=== PATIENT | female | born 1990 | race African-American/Black ===

== ENCOUNTER 2019-01-10 13:06 | Emergency (ER) | payer MEDICAID ==
[~2019-01-10] VITALS: Ht 168 cm; Wt 116.0 kg
[2019-01-10] MEDS ORDERED: KETOROLAC 30 MG/ML VIAL IVP ONE (13:30)
[2019-01-10] MEDS ORDERED: LORazepam INJ 2 MG/ML (ATIVAN) VIAL IVP PRN (13:30)
[2019-01-10 13:54] LABS: BASOPHILS % (AUTO) 0 % (0-10); EOSINOPHILS # (AUTO) 0.1 10^3/uL (0.0-0.3); EOSINOPHILS % (AUTO) 2 % (0-10); HEMATOCRIT 40 % (35-52); HEMOGLOBIN 13.4 G/DL (11.5-16.0); LYMPHOCYTES # (AUTO) 1.5 X 10^3 (1.0-4.0); LYMPHOCYTES % (AUTO) 23 % (12-44); MEAN CORPUSCULAR HEMOGLOBIN 31 PG (25-34); MEAN CORPUSCULAR HGB CONC 34 G/DL (32-36); MEAN CORPUSCULAR VOLUME 92 FL (80-99); MEAN PLATELET VOLUME 10.8 FL (7.4-10.4); MONOCYTES # (AUTO) 0.3 X 10^3 (0.0-1.0); MONOCYTES % (AUTO) 5 % (0-12); NEUTROPHILS # (AUTO) 4.6 X 10^3 (1.8-7.8); NEUTROPHILS % (AUTO) 70 % (42-75); PLATELET COUNT 212 10^3/uL (130-400); RED CELL DISTRIBUTION WIDTH 12.2 % (10.0-14.5); WHITE BLOOD COUNT 6.5 10^3/uL (4.3-11.0)
--- NOTE | 2019-01-10 14:02 | ED Chest Pain ---
General Chief Complaint: Chest Pain Stated Complaint: CP 4-5 DAYS Nursing Triage Note: Patient c/o L sided chest pain x 3 days Nursing Sepsis Screen: No Definite Risk Source: patient Exam Limitations: no limitations History of Present Illness Date Seen by Provider: Jan 10, 2019 Time Seen by Provider: 14:01 Initial Comments To ER with left-sided mid chest pain that she describes as deep and worsened by movement. Present for 3 days since starting old tram for her chronic low back pain. She is tearful on arrival states that she is upset because the Ultram actually works for her chronic low back pain, she was tired of trying a variety of medications none of which helped. She found this Ultram at work but it has also seemingly caused her left-sided chest pain. Timing/Duration: changing over time Severity/Quality: moderate Location: substernal Radiation: no radiation Activities at Onset: none Prior CP/Workup: no prior chest pain ASA po ACID LOADER: No NTG SL ACID LOADER: No Associated Symptoms: No nausea/vomiting Allergies and Home Medications Allergies Coded Allergies: NSAIDS (Non-Steroidal Anti-Inflamma (Verified Allergy, Unknown, 01/10/19) Home Medications Methocarbamol 750 Mg Tablet, 750 MG PO Q6H PRN for PAIN-SEVERE (8-10) Prescribed by: JOSIE BOCANEGRA on 01/10/19 1072 Patient Home Medication List Home Medication List Reviewed: Yes Review of Systems Review of Systems Constitutional: see HPI EENTM: No Symptoms Reported Respiratory: No Symptoms Reported Cardiovascular: See HPI, Chest Pain Gastrointestinal: No Symptoms Reported Genitourinary: No Symptoms Reported Musculoskeletal: no symptoms reported Skin: no symptoms reported Psychiatric/Neurological: No Symptoms Reported Endocrine: No Symptoms Reported Hematologic/Lymphatic: No Symptoms Reported Past Uhjegnv-Dwtvfx-Gkbswu Hx Patient Social History Alcohol Use: Denies Use Recreational Drug Use: No Recent Foreign Travel: No Contact w/Someone Who Travel: No Recent Infectious Disease Expo: No Physical Abuse: No Sexual Abuse: No Mistreated: No Fear: No Past Medical History Surgeries: No Respiratory: No Cardiac: No Neurological: No Genitourinary: No Gastrointestinal: No Musculoskeletal: Yes Chronic Back Pain Endocrine: No HEENT: No Cancer: No Psychosocial: No Integumentary: No Blood Disorders: No Physical Exam Vital Signs Vital Signs - First Documented 01/10/19 01/10/19 13:10 13:17 Pulse 112 Resp 24 B/P (MAP) 171/140 (150) Pulse Ox 100 O2 Delivery Room Air Capillary Refill : Less Than 3 Seconds Height, Weight, BMI Height: '" Weight: lbs. oz. kg; 41.00 BMI Method: General Appearance: No Apparent Distress, WD/WN HEENT: PERRL/EOMI, TMs Normal Respiratory: Normal Breath Sounds, No Accessory Muscle Use, No Respiratory Distress Cardiovascular: Regular Rate, Rhythm, Normal Peripheral Pulses Gastrointestinal: Normal Bowel Sounds, Non Tender, Soft Extremity: Normal Capillary Refill Neurologic/Psychiatric: Alert, Oriented x3 Skin: Normal Color, Warm/Dry Progress/Results/Core Measures Results/Orders Lab Results Laboratory Tests Test 01/10/19 13:48 Range/Units White Blood Count 6.5 4.3-11.0 10^3/uL Red Blood Count 4.31 L 4.35-5.85 10^6/uL Hemoglobin 13.4 11.5-16.0 G/DL Hematocrit 40 35-52 % Mean Corpuscular Volume 92 80-99 FL Mean Corpuscular Hemoglobin 31 25-34 PG Mean Corpuscular Hemoglobin Concent 34 32-36 G/DL Red Cell Distribution Width 12.2 10.0-14.5 % Platelet Count 212 130-400 10^3/uL Mean Platelet Volume 10.8 H 7.4-10.4 FL Neutrophils (%) (Auto) 70 42-75 % Lymphocytes (%) (Auto) 23 12-44 % Monocytes (%) (Auto) 5 0-12 % Eosinophils (%) (Auto) 2 0-10 % Basophils (%) (Auto) 0 0-10 % Neutrophils # (Auto) 4.6 1.8-7.8 X 10^3 Lymphocytes # (Auto) 1.5 1.0-4.0 X 10^3 Monocytes # (Auto) 0.3 0.0-1.0 X 10^3 Eosinophils # (Auto) 0.1 0.0-0.3 10^3/uL Basophils # (Auto) 0.0 0.0-0.1 10^3/uL D-Dimer 0.51 H 0.00-0.49 UG/ML Sodium Level 140 135-145 MMOL/L Potassium Level 4.6 3.6-5.0 MMOL/L Chloride Level 106 98-107 MMOL/L Carbon Dioxide Level 23 21-32 MMOL/L Anion Gap 11 5-14 MMOL/L Blood Urea Nitrogen 8 7-18 MG/DL Creatinine 0.77 0.60-1.30 MG/DL Estimat Glomerular Filtration Rate > 60 BUN/Creatinine Ratio 10 Glucose Level 98 70-105 MG/DL Calcium Level 9.4 8.5-10.1 MG/DL Corrected Calcium 9.2 8.5-10.1 MG/DL Total Bilirubin 0.2 0.1-1.0 MG/DL Aspartate Amino Transf (AST/SGOT) 22 5-34 U/L Alanine Aminotransferase (ALT/SGPT) 24 0-55 U/L Alkaline Phosphatase 75 40-136 U/L Troponin I < 0.028 <0.028 NG/ML Total Protein 7.8 6.4-8.2 GM/DL Albumin 4.2 3.2-4.5 GM/DL Serum Test, Qualitative NEGATIVE NEGATIVE My Orders Orders - JOSIE BOCANEGRA APRN Cbc With Automated Diff (01/10/19 13:17) Comprehensive Metabolic Panel (01/10/19 13:17) Hcg,Qualitative Serum (01/10/19 13:17) Fibrin Degradation Products (01/10/19 13:17) Troponin I (01/10/19 13:17) Ekg Tracing (01/10/19 13:17) Chest Pa/Lat (2 View) (01/10/19 13:17) Ed Iv/Invasive Line Start (01/10/19 13:17) Ketorolac Injection (Toradol Injection) (01/10/19 13:30) Lorazepam Injection (Ativan Injection) (01/10/19 13:30) Ct Angio Chest W (01/10/19 14:10) Iohexol Injection (Omnipaque 350 Mg/Ml 1 (01/10/19 14:30) Received Contrast (Hold Metformin- Contr (01/10/19 14:30) Ns (Ivpb) (Sodium Chloride 0.9% Ivpb Bag (01/10/19 14:30) Medications Given in ED Current Medications Medications Dose Ordered Sig/Danelle Route Start Time Stop Time Status Last Admin Dose Admin Iohexol 100 ml ONCE ONCE IV 01/10/19 14:30 01/10/19 14:31 DC 01/10/19 14:40 84 ML Ketorolac Tromethamine 15 mg ONCE ONCE IVP 01/10/19 13:30 01/10/19 13:31 DC 01/10/19 13:22 15 MG Sodium Chloride 100 ml ONCE ONCE IV 01/10/19 14:30 01/10/19 14:31 DC 01/10/19 14:40 100 ML Vital Signs/I&O 01/10/19 01/10/19 01/10/19 13:10 13:17 15:04 Pulse 112 94 Resp 24 18 B/P (MAP) 171/140 (150) 142/91 (150) Pulse Ox 100 100 O2 Delivery Room Air Room Air Blood Pressure Mean: 150 POS Departure Impression Primary Impression: Chest pain Qualified Codes: R07.9 - Chest pain, unspecified Disposition: HOME, SELF-CARE Condition: Stable Departure-Patient Inst. Decision time for Depature: 14:51 Referrals: [facility]/ (PCP) Primary Care Physician TESS ALVAREZ APRN (Family) Primary Care Physician Patient Instructions: Chest Pain (DC) Add. Discharge Instructions: 1. Return to ER for any concerns 2. Follow-up with your doctor next week 3. All discharge instructions reviewed with patient and/or family. Voiced understanding. Scripts Methocarbamol (Robaxin-750) 750 Mg Tablet 750 MG PO Q6H PRN for PAIN-SEVERE (8-10), #30 TAB Prov: JOSIE BOCANEGRA APRN 01/10/19 JOSIE BOCANEGRA APRN Jan 10, 2019 14:02 POS
[2019-01-10 14:13] LABS: ALANINE AMINOTRANSFERASE 24 U/L (0-55); ALBUMIN 4.2 GM/DL (3.2-4.5); ALKALINE PHOSPHATASE 75 U/L (40-136); BILIRUBIN,TOTAL 0.2 MG/DL (0.1-1.0); BUN/CREATININE RATIO 10; CALCIUM 9.4 MG/DL (8.5-10.1); CARBON DIOXIDE 23 MMOL/L (21-32); CHLORIDE 106 MMOL/L (98-107); CREATININE SERUM 0.77 MG/DL (0.60-1.30); GFR ESTIMATED > 60; GLUCOSE 98 MG/DL (70-105); POTASSIUM 4.6 MMOL/L (3.6-5.0); SODIUM 140 MMOL/L (135-145); TOTAL PROTEIN 7.8 GM/DL (6.4-8.2)
[2019-01-10] MEDS ORDERED: NS 100 ML (IVPB) BAG IV ONE (14:30)
[2019-01-10] MEDS ORDERED: IOHEXOL 350 MG/ML 100 ML (OMNIPAQUE 350) VIAL IV ONE (14:30)
[2019-01-10] MEDS ORDERED: HOLD METFORMIN - RECEIVED CONTRAST 20 ML VIAL IV SCH (14:30)
--- NOTE | 2019-01-10 14:35 | Diagnostic Imaging Report ---
Indication: Left-sided chest pain for 3 days. Comparison: None. Discussion: Two views of the chest were obtained. Normal heart size. No focal consolidation, pleural fluid, or pneumothorax. No osseous abnormality. Impression: 1. Negative chest. Dictated by: Dictated on workstation # [id number]
--- NOTE | 2019-01-10 14:45 | Diagnostic Imaging Report ---
PROCEDURE: CT angiography of the chest with contrast. TECHNIQUE: Multiple contiguous axial images were obtained through the chest after uneventful bolus administration of intravenous contrast. 3D reconstructed CTA MIP acquisitions were also performed. Auto Exposure Controls were utilized during the CT exam to meet ALARA standards for radiation dose reduction. INDICATION: Left-sided chest pain. FINDINGS: There were no intraluminal pulmonary arterial filling defects identified. No displacement of the ventricular septum. No findings of elevated right heart pressures. No features of pulmonary hemorrhage or lung infarct. We acknowledge that distal pulmonary arterial branch opacification is technically limited. The aorta is patent and nonaneurysmal. Heart size upper limits but no pleural or pericardial effusion. There is no pneumothorax. No lung mass or evidence for thoracic lymphadenopathy. No acute chest wall pathology. No findings of pneumonia or edema. IMPRESSION: No evidence for PE, aortic disease or other acute abnormalities. Dictated by: Dictated on workstation # [id number]
[2019-01-10] MEDS ORDERED: METH-313 PO (14:52)
[2019-01-10 15:04] VITALS: BP 142/91
--- OUTSIDE RECORDS SUMMARY | 2019-02-04 08:24 | XMS REPORT | Continuity of Care Document ---
Author Author [facility] Organization [facility] Address [facility] [address] [place] [address] Phone Unavailable Support Name Relationship Address Phone MAK ARENAS D.O. Caregiver [address] [facility] [address] [place], [place] [id number] MAGDALENA, ALEXI Next Of Kin [address] [place] [address] Insurance Providers Payer Name Policy Number Subscriber Name Relationship Blue Cross Other [id number] Gracie Burk H 19 Child Advance Directives Directive Response Recorded Date/Time Advance Directives No 09/01/15 5:10pm Living Will No 09/01/15 5:10pm Health Care Proxy No 09/01/15 5:10pm Power of Quality Control Checker for Health Care No 5:10pm Organ, Tissue, or Eye Donor Yes 09/01/15 5:1 0pm Do you have a signed organ donor card? No 0 06/24/15 3:31pm Problems Active Problems Medical Problem Onset Date Status Threatened miscarriage Unknown Acute Medications Current Home Medications Medication Dose Units Route Directions Days/Qty Instructions Star t Date Prenat Multivit/[place]/Iron/Folic Ac 1 Each 2 Udtab Oral Daily 06/15/15 Acetaminophen 325 Mg 2 Tab Oral Every 4 Hours a s needed for Pain Or Temperature 06/15/15 Metoprolol Tartrate 25 Mg 25 Mg Oral Twice A Day 60 09/01/15 [Red Raspberry] 2 Tab Oral Twice A Day 08/11 03/28 Past Home Medications Medication Directions Ordered Status [[place]] , 3 Tab Oral Daily 09/01/15 Disc ontinued Social History Social History Problem Response Recorded Date/[place] e Smoking Status Former smoker 09/01/2015 5:10pm Query Response Start Date Stop Date Smoking Status Former smoker Hospital Discharge Instructions Discharge Instructions Provider Instructions Make Appointment with: Dr. Arenas [phone] Follow Up In: 6 Weeks Diet: Regular (No Restrictions) Activity Restrictions: no sex Smoking Cessation If you are a smoker, the following is recommended: Stop all tobacco use; for help quitting, please call [phone]. Wound Care: Keep incision clean washing frequently Notify Physician If: Fever Greater 100.5 F, Pain Not Relieved by Med., Excessive Bleeding # of Weeks Gestation: 40 # of Days Gestation: 3 OB-Reason for Admission/Chief: Medical Complication (HTN) Nursing Instructions Flu Vaccine Received this Visit: No Pneumonia Vaccine Received this Visit: No Education #1 Patient specific education materials provided?: Yes Patient Request Electronic Discharge Instructions: No Patient Received Electronic Discharge Instructions: No Patient Health Summary printed/downloaded for the patient?: Yes Plan of Care Discharge Date 09/03/15 11:00am Disposition 01 HOME, SENIOR CARE,ASSISTED TRAVIS Galaviz Instructions/Education Provided Vaginal Delivery (DC) Prescriptions See Medication Section Care Plan and Goals See Discharge Instructions S ection Functional Status Query Response Date Recorded Patient Behavior Appropriate September 01, 2015 5:48pm Allergies, Adverse Reactions, Alerts No known allergies. Immunizations Name Given Type Hx Diphtheria, Pertussis, Tetanus Vaccination Up To Date Historical Hx Influenza Vaccination No Historical Hx Pneumococcal Vaccination No Historical Vital Signs Acute Vital Signs Vital Response Date/Time Temperature (Fahrenheit) 97.8 degrees F (97.6 - 99.5) 2015 7:57am Temperature Source Temporal Artery 09/03/2015 7:57am Pulse Rate (adult) 100 bpm (60 - 90) 09/03/2015 7:57am Respiratory Rate 16 bpm (12 - 24) 09/02/2015 8:50pm Blood Pressure 127/73 mm Hg 09/03/2015 7:57am Pain Location Body Site Modifier 016 7:57am Pain Description 09/03/2015 7:57am Pain Duration 31-60 Minutes 09/02/2015 8:45am Height 5 ft 6 in Weight 240 lb Body Mass Index 38.7 kg/m^2 Results Laboratory Results Test Name Result Units Flags Reference Collection Date/Time Result Date/Time Comments White Blood Count 9.0 K/uL 4.8-10.8 06/09/2015 11:45am 9:39pm Red Blood Count 3.27 M/uL L 4.20-5.40 06/09/2015 11:45 9:39pm Hemoglobin 11.0 gm/dL L 12.0-16.0 06/09/2015 11:4506/09/19 16 9:39pm Hematocrit 34.3 % L 37.0-47.0 06/09/2015 11:4506/09/19 16 9:39pm Mean Corpuscular Volume 104.9 fL H 81.0-99.0 2015 11:4506/09/2015 9:39pm Mean Corpuscular Hemoglobin 33.6 pg H 27.0-31.0 11:4506/09/2015 9:39pm Mean Corpuscular Hemoglobin Concent 32.1 g/dL 30.0 -37.0 06/09/2015 11:06/09/2015 9:39pm Red Cell Distribution Width 13.4 % 11.5-14.5 11:4506/09/2015 9:39pm Platelet Count 198 K/uL 130-400 06/09/2015 11:452015 9:39pm Mean Platelet Volume 11.8 fL H 7.4-10.4 06/09/2015 11:06/09/2015 9:39pm Neutrophils (%) (Auto) 80.8 % H 42.2-75.2 06/09/2015 11:4 5am 06/09/2015 9:39pm Lymphocytes (%) (Auto) 12.4 % L 20.5-51.1 06/09/2015 11:4 5am 06/09/2015 9:39pm Monocytes (%) (Auto) 5.2 % 1.7-9.3 06/09/2015 11:4506/09/2015 9:39pm Eosinophils (%) (Auto) 1.1 % 0-3 06/09/2015 11:45a m 06/09/2015 9:39pm Basophils (%) (Auto) 0.6 % 0.0-1.0 06/09/2015 11:4506/09/2015 9:39pm Neutrophils # (Auto) 7.2 K/uL H 2.0-6.9 06/09/2015 11:4506/09/2015 9:39pm Lymphocytes # (Auto) 1.1 K/uL L 1.2-3.4 06/09/2015 11:45am 06/09/2015 9:39pm Monocytes # (Auto) 0.5 K/uL 0.1-0.6 06/09/2015 11:45am 9:39pm Eosinophils # (Auto) 0.1 K/uL 0.0-0.7 06/09/2015 11:45am 06/09/2015 9:39pm Basophils # (Auto) 0.1 K/uL 0.0-0.2 06/09/2015 11:45am 9:39pm Pending Laboratory Results Test Name Collection Date/Time Procedures No known history of procedures. Encounters Encounter Location Arrival/Admit Date Discharge/Depart Date Attending Provider Discharged Inpatient [place] 09/01/15 12:07pm 09/03/15 11:00am MAK ARENAS D.O. Registered Referred [place] 08/04/15 5:33pm MAK QUEEN D.O. Registered Referred [place] 07/14/15 11:01am MAK VELASQUEZ D.O. Registered Clinic [place] 07/11/15 9:37am MAK ARENAS D.O. Registered Clinic [place] 07/04/15 11:21am MAK ARENAS D.O. Registered [facility] 06/24/15 3:36pm MAK ARENAS D.O. Departed [facility] 06/15/15 1:48pm 06/15/15 2:57pm MAK ARENAS D.O. Registered Referred [place] 06/09/15 7:30pm MAK QUEEN D.O.
--- OUTSIDE RECORDS SUMMARY | 2019-02-04 08:24 | XMS REPORT | Continuity of Care Document ---
Author Author [facility] Organization [facility] Address [facility] [address] [place] [id number] Phone Unavailable Support Name Relationship Address Phone ALVINO CASTANON MD Caregiver [address] [place] [id number] Unavailable MAK VALENZUELA D.O. Caregiver [address] [place] [address] MAGDALENAALEXI Next Of Kin [address] [place] [address] Insurance Providers Payer Name Policy Number Subscriber Name Relationship [employer] Other [id number] Gracie Burk 19 Child Advance Directives Directive Response Recorded Date/Time Advance Directives No 09/01/15 5:10pm Living Will No 09/01/15 5:10pm Health Care Proxy No 09/09/15 7:44pm Power of Utilization Manager for Health Care No 5:10pm Organ, Tissue, or Eye Donor Yes 09/01/15 5:1 0pm Do you have a signed organ donor card? No 0 06/24/15 3:31pm Chief Complaint and Reason for Visit Chief Complaint LACERATION/RECHECK/SUTURE Reason for Visit Wound dehiscence Problems Active Problems Medical Problem Onset Date Status Threatened miscarriage Unknown Acute Wound dehiscence Unknown Acute Medications Current Home Medications Medication Dose Units Route Directions Days/Qty Instructions Star t Date Prenat Multivit/Extension Service Supervisor/Iron/Folic Ac 1 Each 2 Udtab Oral Daily [...] Smoking Status Former smoker Hospital Discharge Instructions No hospital discharge instructions. Plan of Care Discharge Date 09/09/15 8:30pm Disposition 01 HOME, HALFWAY,ASSISTED TRAVIS Galaviz Condition at Discharge Stable Instructions/Education Provided Wound Dehiscence (ED) Prescriptions See Medication Section Additional Instructions/Education Return if the lacera tion opens more, for any redness, swelling, drainage, or increased pain. Follow up with Dr Valenzuela on Friday. Functional Status Query Response Date Recorded Patient Behavior Cooperative September 09, 2015 7:55pm Allergies, Adverse Reactions, Alerts No known allergies. Immunizations Name Given Type Hx Diphtheria, Pertussis, Tetanus Vaccination Up To Date Historical Hx Influenza Vaccination N Does not take Historical Hx Pneumococcal Vaccination N Does not take Historical Vital Signs Acute Vital Signs Vital Response Date/Time Temperature (Fahrenheit) 97.6 degrees F (97.6 - 99.5) 2015 8:30pm Temperature Source Temporal Artery 09/09/2015 8:30pm Pulse Rate (adult) 88 bpm (60 - 90) 09/09/2015 8:30pm Respiratory Rate 18 bpm (12 - 24) 09/09/2015 8:30pm Blood Pressure 142/84 mm Hg 09/09/2015 8:30pm O2 Sat by Pulse Oximetry 100 % (90 - 100) 09/09/2015 8:30 pm Oxygen Delivery Method 09/09/2015 8:30pm Pain Location Body Site Modifier 016 7:57am Pain Description 09/03/2015 7:57am Pain Duration 31-60 Minutes 09/02/2015 8:45am Height 5 ft 6 in Weight 236 lb Body Mass Index 38.0 kg/m^2 Results Pending Laboratory Results Test Name Collection Date/Time Procedures Procedure Status Date Provider(s) EXTRACTION OF POC, LOW FORCEPS, VIA OPENING Completed 08/11 04/25 MAK VALENZUELA D.O. REPAIR PERINEUM MUSCLE, OPEN APPROACH Completed 09/02/15 MAK VALENZUELA D.O. DIVISION OF FEMALE PERINEUM, EXTERNAL APPROACH Completed 0 09/02/15 MAK VALENZUELA D.O. DRAINAGE OF AMNIOTIC FL, THERAP FROM POC, VIA OPENING Completed 09/02/15 MAK VALENZUELA D.O. Encounters Encounter Location Arrival/Admit Date Discharge/Depart Date Attending Provider Departed Emergency Room [place] 09/09/15 7:46pm 09/09/15 8:30p ALVINO Flores MD Discharged Inpatient [place] 09/01/15 12:07pm 09/03/15 11:00am MAK VALENZUELA D.O. Registered Referred [place] 08/04/15 5:33pm MAK QUEEN D.O. Registered Referred [place] 07/14/15 11:01am MAK VELASQUEZ D.O. Registered Clinic [place] 07/11/15 9:37am MAK VALENZUELA D.O. Registered Clinic [place] 07/04/15 11:21am MAK VALENZUELA D.O. Registered Clinic [place] 06/24/15 3:36pm MAK VALENZUELA D.O. Departed Clinic [place] 06/15/15 1:48pm 06/15/15 2:57pm MAK VALENZUELA D.O. Recent Diagnosis
--- OUTSIDE RECORDS SUMMARY | 2019-02-04 08:24 | XMS REPORT | Continuity of Care Document ---
Author Author [facility] Organization [facility] Address [facility] [address] [place] [address] Phone Unavailable Support Name Relationship Address Phone MAK ARENAS D.O. Caregiver [address] [facility] [address] [place] [address] MAGDALENA, ALEXI Next Of Kin [address] [place] [address] Insurance Providers Payer Name Policy Number Subscriber Name Relationship Blue [employer] Other [id number] Gracie Burk 19 Child Advance Directives Directive Response Recorded Date/Time Advance Directives No 09/03/11 12:18pm Living Will No 09/03/11 12:18pm Health Care Proxy No 06/15/15 1:48pm Power of Anchor Operator for Health Care No 12:18pm Organ, Tissue, or Eye Donor No 09/03/11 12: 18pm Do you have a signed organ donor card? No 0 09/03/11 12:18pm Problems Active Problems Medical Problem Onset Date Status Threatened miscarriage Unknown Acute Medications Current Home Medications Medication Dose Units Route Directions Days/Qty Instructions Star t Date Prenat Multivit/[place]/Iron/Folic Ac 1 Each 1 Udtab Oral 06/15/15 Acetaminophen 325 Mg 06/25 Social History No social history. Hospital Discharge Instructions No hospital discharge instructions. Plan of Care Discharge Date 06/15/15 2:57pm Prescriptions See Medication Section Functional Status No functional status results. Allergies, Adverse Reactions, Alerts No known allergies. Immunizations Name Given Type Hx Diphtheria, Pertussis, Tetanus Vaccination Up To Date Historical Hx Influenza Vaccination No Historical Hx Pneumococcal Vaccination No Historical Vital Signs Acute Vital Signs Vital Response Date/Time Height 5 ft 6 in Weight 218 lb Body Mass Index 35.2 kg/m^2 Results Laboratory Results Test Name Result Units Flags Reference Collection Date/Time Result Date/Time Comments White Blood Count 9.0 K/uL 4.8-10.8 06/09/2015 11:45 9:39pm Red Blood Count 3.27 M/uL L 4.20-5.40 06/09/2015 11:45 9:39pm Hemoglobin 11.0 gm/dL L 12.0-16.0 06/09/2015 11:4506/09/19 16 9:39pm Hematocrit 34.3 % L 37.0-47.0 06/09/2015 11:4506/09/19 16 9:39pm Mean Corpuscular Volume 104.9 fL H 81.0-99.0 2015 11:4506/09/2015 9:39pm Mean Corpuscular Hemoglobin 33.6 pg H 27.0-31.0 11:4506/09/2015 9:39pm Mean Corpuscular Hemoglobin Concent 32.1 g/dL 30.0 -37.0 06/09/2015 11:4506/09/2015 9:39pm Red Cell Distribution Width 13.4 % 11.5-14.5 11:4506/09/2015 9:39pm Platelet Count 198 K/uL 130-400 06/09/2015 11:452015 9:39pm Mean Platelet Volume 11.8 fL H 7.4-10.4 06/09/2015 11:4506/09/2015 9:39pm Neutrophils (%) (Auto) 80.8 % H 42.2-75.2 06/09/2015 11:4 5am 06/09/2015 9:39pm Lymphocytes (%) (Auto) 12.4 % L 20.5-51.1 06/09/2015 11:4 5am 06/09/2015 9:39pm Monocytes (%) (Auto) 5.2 % 1.7-9.3 06/09/2015 11:4506/09/2015 9:39pm Eosinophils (%) (Auto) 1.1 % 0-3 06/09/2015 11:45a m 06/09/2015 9:39pm Basophils (%) (Auto) 0.6 % 0.0-1.0 06/09/2015 11:45am 06/09/2015 9:39pm Neutrophils # (Auto) 7.2 K/uL H 2.0-6.9 06/09/2015 11:45am 06/09/2015 9:39pm Lymphocytes # (Auto) 1.1 K/uL L 1.2-3.4 06/09/2015 11:45am 06/09/2015 9:39pm Monocytes # (Auto) 0.5 K/uL 0.1-0.6 06/09/2015 11:45am 9:39pm Eosinophils # (Auto) 0.1 K/uL 0.0-0.7 06/09/2015 11:45am 06/09/2015 9:39pm Basophils # (Auto) 0.1 K/uL 0.0-0.2 06/09/2015 11:45am 9:39pm Procedures No known history of procedures. Encounters Encounter Location Arrival/Admit Date Discharge/Depart Date Attending Provider Departed Clinic [place] 06/15/15 1:48pm 06/15/15 2:57pm MAK ARENAS D.O. Registered Referred [place] 06/09/15 7:30pm MAK QUEEN D.O.
--- OUTSIDE RECORDS SUMMARY | 2019-02-04 08:24 | XMS REPORT | Continuity of Care Document ---
Author Organization Unknown Address Unknown Phone Unavailable Allergies Active Description Code Type Severity Reaction Onset Reported/Identified Relationship to Patient Clinical Status Yes NSAIDS (Non-Steroidal Anti-Inflamma [id number] Drug Allergy Unknown N/A 01/10/2019 Medications There is no data. Problems There is no data. Procedures There is no data. Results Test Result Range Complete blood count (CBC) with automate d white blood cell (WBC) differential - 01/10/19 13:48 Blood leukocytes automated count (number/volume) 6.5 10*3/uL 4.3-11.0 Blood erythrocytes automated count (number/volume) 4.31 10*6/uL 4.35-5.85 Venous blood hemoglobin measurement (mass/volume) 13.4 g/dL 11.5-16.0 Blood hematocrit (volume fraction) 40 % 35-52 Automated erythrocyte mean corpuscular volume 92 [ foz_us] 80-99 Automated erythrocyte mean corpuscular h emoglobin (mass per erythrocyte) 31 pg 25-34 Automated erythrocyte mean corpuscular h emoglobin concentration measurement (mass/volume) 34 g/dL 32-36 Automated erythrocyte distribution width ratio 12. 2 % 10.0- 14.5 Automated blood platelet count (count/volume) 212 10*3/uL 130-400 Automated blood platelet mean volume measurement 10.8 [foz_us] 7.4-10.4 Automated blood neutrophils/100 leukocytes 70 % 42-75 Automated blood lymphocytes/100 leukocytes 23 % 12-44 Blood monocytes/100 leukocytes 5 % 0-12 Automated blood eosinophils/100 leukocytes 2 % 0-10 Automated blood basophils/100 leukocytes 0 % 0-10 Blood neutrophils automated count (number/volume) 4.6 10*3 1.8-7.8 Blood lymphocytes automated count (number/volume) 1.5 10*3 1.0-4.0 Blood monocytes automated count (number/volume) 0. 3 10*3 0.0-1.0 Automated eosinophil count 0.1 10*3/uL 0 .0-0.3 Automated blood basophil count (count/volume) 0.0 10*3/uL 0.0-0.1 Serum or plasma choriogonadotropin (preg kelli test) detection - 01/10/19 13:48 Serum or plasma choriogonadotropin ( test) de tection NEGATIVE NEGATIVE Comprehensive metabolic panel - 01/10/19 13:48 Serum or plasma sodium measurement (moles/volume) 140 mmol/L 135-145 Serum or plasma potassium measurement (moles/volume) 4.6 mmol/L 3.6-5.0 Serum or plasma chloride measurement (moles/volume) 106 mmol/L 98-107 Carbon dioxide 23 mmol/L 21-32 Serum or plasma anion gap determination (moles/volume) 11 mmol/L 5-14 Serum or plasma urea nitrogen measurement (mass/volume ) 8 mg/dL 7-18 Serum or plasma creatinine measurement (mass/volume) 0.77 mg/dL 0.60-1.30 Serum or plasma urea nitrogen/creatinine mass ratio 10 NRG Serum or plasma creatinine measurement w ith calculation of estimated glomerular filtration rate > NRG Serum or plasma glucose measurement (mass/volume) 98 mg/dL 70-105 Serum or plasma calcium measurement (mass/volume) 9.4 mg/dL 8.5-10.1 Serum or plasma total bilirubin measurement (mass/volu me) 0.2 mg/dL 0.1-1.0 Serum or plasma alkaline phosphatase arianna surement (enzymatic activity/volume) 75 U/L 40-136 Serum or plasma aspartate aminotransfera se measurement (enzymatic activity/volume) 22 U/L 5-34 Serum or plasma alanine aminotransferase measurement (enzymatic activity/volume) 24 U/L 0-55 Serum or plasma protein measurement (mass/volume) 7.8 g/dL 6.4-8.2 Serum or plasma albumin measurement (mass/volume) 4.2 g/dL 3.2-4.5 CALCIUM CORRECTED 9.2 mg/dL 8.5-10.1 Serum or plasma troponin i.cardiac measu rement (mass/volume) - 01/10/19 13:48 Serum or plasma troponin i.cardiac measurement (mass/v olume) < ng/mL <0.028 Fibrin D-dimer FEU measurement in platel et poor plasma (mass/volume) - 01/10/19 13:48 Fibrin D-dimer FEU measurement in platelet poor plasma (mass/volume) 0.51 ug/mL 0.00-0.49 Encounters ACCT No. Visit Date/Time Discharge Status Pt. Type Provider Facility Loc./Unit Complaint [id number] 01/25/2019 11:00:00 01/25/2019 23:59: [address] [facility] [id number] 01/10/2019 13:08:00 019 15:04:00 DIS Emergency JOSIE BOCANEGRA APRN [facility] ER CP 4-5 DAYS
== END 2019-01-10 15:04 | disposition home or self-care (01) ==
LOC: ER 13:08
DX: R07.9 Chest pain, unspecified (principal); Z88.6 Allergy status to analgesic agent
CPT/HCPCS: 36415; 71046; 71275; 80053; 84484; 84703; 85025; 85379; 93005; 96374

== ENCOUNTER 2021-03-09 19:04 | Emergency (ER) | payer MEDICAID ==
[~2021-03-09] VITALS: Ht 167 cm; Wt 113.0 kg
[~2021-03-09 19:04] MED LIST: METH-313 PO
[2021-03-09] MEDS ORDERED: PROMETHAZINE INJ 25 MG/ML (PHENERGAN) AMP ONE (19:18)
[2021-03-09] MEDS ORDERED: LACTATED RINGERS 1,000 ML IV ONE (19:18)
--- NOTE | 2021-03-09 19:22 | ED Abdominal Pain ---
General Chief Complaint: Abdominal/GI Problems Stated Complaint: VOMITING Source of Information: Patient Exam Limitations: No Limitations History of Present Illness Date Seen by Provider: Mar 09, 2021 Time Seen by Provider: 19:21 Initial Comments To ER with vomiting. Whenever she strains to vomit she squirts a little diarrhea. She has been doing this intermittently for a few days. She had an episode similar last week but seemed to recover from that. No fevers. She has had some intermittent lower abdominal cramping as well as intermittent vaginal bleeding. She is sexually active with her . Timing/Duration: Intermittent Severity/Quality: Moderate Radiation: No Radiation Activities at Onset: None Associated Symptoms: Nausea/Vomiting Allergies and Home Medications Allergies Coded Allergies: NSAIDS (Non-Steroidal Anti-Inflamma (Verified Allergy, Unknown, 01/10/19) Patient Home Medication List Home Medication List Reviewed: Yes Methocarbamol (Robaxin-750) 750 Mg Tablet, 750 MG PO Q6H PRN for PAIN-SEVERE (8- 10) Prescribed by: JOSIE BOCANEGRA on 01/10/19 1452 Ondansetron (Ondansetron Odt) 8 Mg Tab.rapdis, 8 MG PO Q6H PRN for NAUSEA/VOMITING Prescribed by: JOSIE BOCANEGRA on 03/09/212107 Promethazine HCl (Promethazine Tablet) 25 Mg Tablet, 25 MG PO TID PRN for NAUSEA/VOMITING Prescribed by: JOSIE BOCANEGRA on 03/09/212107 Review of Systems Review of Systems Constitutional: see HPI EENTM: No Symptoms Reported Respiratory: No Symptoms Reported Cardiovascular: No Symptoms Reported Gastrointestinal: No Symptoms Reported Genitourinary: No Symptoms Reported Musculoskeletal: no symptoms reported Skin: no symptoms reported Psychiatric/Neurological: No Symptoms Reported Endocrine: No Symptoms Reported Hematologic/Lymphatic: No Symptoms Reported Past Lxrmgxy-Bgkyox-Ofztkl Hx Past Medical History Surgeries: No Respiratory: No Cardiac: No Neurological: No Genitourinary: No Gastrointestinal: No Musculoskeletal: Yes Chronic Back Pain Endocrine: No HEENT: No Cancer: No Psychosocial: No Integumentary: No Blood Disorders: No Physical Exam Vital Signs Capillary Refill : Height/Weight/BMI Height: '" Weight: lbs. oz. kg; 41.00 BMI Method: General Appearance: WD/WN, no apparent distress HEENT: PERRL/EOMI, normal ENT inspection Respiratory: no respiratory distress, no accessory muscle use Cardiovascular: no murmur, tachycardia Gastrointestinal: normal bowel sounds, soft, tenderness Extremities: normal range of motion, non-tender Neurologic/Psychiatric: alert, normal mood/affect, oriented x 3 Skin: normal color, warm/dry Progress/Results/Core Measures Results/Orders Lab Results Laboratory Tests Test 03/09/21 19:18 03/09/21 19:22 03/09/21 21:04 Range/Units White Blood Count 13.5 H 4.3-11.0 10^3/uL Red Blood Count 4.57 3.80-5.11 10^6/uL Hemoglobin 14.3 11.5-16.0 g/dL Hematocrit 42 35-52 % Mean Corpuscular Volume 91 80-99 fL Mean Corpuscular Hemoglobin 31 25-34 pg Mean Corpuscular Hemoglobin Concent 34 32-36 g/dL Red Cell Distribution Width 12.2 10.0-14.5 % Platelet Count 295 130-400 10^3/uL Mean Platelet Volume 11.4 9.0-12.2 fL Immature Granulocyte % (Auto) 0 % Neutrophils (%) (Auto) 89 H 42-75 % Lymphocytes (%) (Auto) 8 L 12-44 % Monocytes (%) (Auto) 3 0-12 % Eosinophils (%) (Auto) 0 0-10 % Basophils (%) (Auto) 0 0-10 % Neutrophils # (Auto) 12.0 H 1.8-7.8 10^3/uL Lymphocytes # (Auto) 1.0 1.0-4.0 10^3/uL Monocytes # (Auto) 0.4 0.0-1.0 10^3/uL Eosinophils # (Auto) 0.0 0.0-0.3 10^3/uL Basophils # (Auto) 0.0 0.0-0.1 10^3/uL Immature Granulocyte # (Auto) 0.1 0.0-0.1 10^3/uL Neutrophils % (Manual) 93 % Lymphocytes % (Manual) 5 % Monocytes % (Manual) 2 % Blood Morphology Comment NORMAL Sodium Level 141 135-145 MMOL/L Potassium Level 3.2 L 3.6-5.0 MMOL/L Chloride Level 105 98-107 MMOL/L Carbon Dioxide Level 17 L 21-32 MMOL/L Anion Gap 19 H 5-14 MMOL/L Blood Urea Nitrogen 13 7-18 MG/DL Creatinine 0.90 0.60-1.30 MG/DL Estimat Glomerular Filtration Rate 88 BUN/Creatinine Ratio 14 Glucose Level 143 H 70-105 MG/DL Calcium Level 10.1 8.5-10.1 MG/DL Corrected Calcium 8.5-10.1 MG/DL Total Bilirubin 0.5 0.1-1.0 MG/DL Aspartate Amino Transf (AST/SGOT) 29 5-34 U/L Alanine Aminotransferase (ALT/SGPT) 33 0-55 U/L Alkaline Phosphatase 61 40-136 U/L Total Protein 8.7 H 6.4-8.2 GM/DL Albumin 4.6 H 3.2-4.5 GM/DL Lipase 9 8-78 U/L Serum Test, Qualitative NEGATIVE NEGATIVE Urine Color YELLOW Urine Clarity CLEAR Urine pH 8.0 5-9 Urine Specific [place] 1.020 1.016-1.022 Urine Protein 2+ H NEGATIVE Urine Glucose (UA) NEGATIVE NEGATIVE Urine Ketones 1+ H NEGATIVE Urine Nitrite NEGATIVE NEGATIVE Urine Bilirubin NEGATIVE NEGATIVE Urine Urobilinogen 0.2 < = 1.0 MG/DL Urine Leukocyte Esterase TRACE H NEGATIVE Urine RBC (Auto) 2+ H NEGATIVE Urine RBC 5-10 H /HPF Urine WBC 2-5 /HPF Urine Crystals PRESENT H /LPF Urine Amorphous Sediment FEW NIKOLAS PHOSPHATE H /LPF Urine Bacteria TRACE /HPF Urine Casts NONE /LPF Urine Mucus LARGE H /LPF Urine Culture Indicated NO My Orders Orders - [facility]IE [facility]OC[facility] [employer] Cbc With Automated Diff (03/09/21 19:14) Lipase (03/09/21 19:14) Ua Culture If Indicated (03/09/21 19:14) Hcg,Qualitative Serum (03/09/21 19:14) Comprehensive Metabolic Panel (03/09/21 19:14) Ed Iv/Invasive Line Start (03/09/21 19:14) Ct Abd/Pelv W (Appendicitis) (03/09/21 19:20) Wet Prep (03/09/21 19:20) Neisseria Gonorrhea Swab (03/09/21 19:20) Genital Culture (03/09/21 19:20) Chlamydia Trachomatis Swab (03/09/21 19:20) Promethazine Injection (Phenergan Injec (03/09/21 19:18) Lactated Ringers (Lr 1000 Ml Iv Solution (03/09/21 19:18) Iohexol Injection (Omnipaque 350 Mg/Ml 1 (03/09/21 19:30) Received Contrast (Hold Metformin- Contr (03/09/21 19:30) Ns (Ivpb) (Sodium Chloride 0.9% Ivpb Bag (03/09/21 19:30) Manual Differential (03/09/21 19:18) Medications Given in ED Current Medications Medications Dose Ordered Sig/Danelle Route Start Time Stop Time Status Last Admin Dose Admin Iohexol 100 ml ONCE ONCE IV 03/09/21 19:30 03/09/21 19:31 DC 03/09/21 20:04 100 ML Lactated Ringer's 1,000 ml @ ud STK-MED ONCE IV 03/09/21 19:18 03/09/21 19:21 DC 03/09/21 19:26 0 MLS/HR Promethazine HCl 25 mg STK-MED ONCE .ROUTE 03/09/21 19:18 03/09/21 19:21 DC 03/09/21 19:26 25 MG Sodium Chloride 100 ml ONCE ONCE IV 03/09/21 19:30 03/09/21 19:31 DC 03/09/21 20:05 80 ML Departure Communication (Admissions) 2105-Pelvic exam done with Jesus 4th-year medical student at the bedside. There is no cervical motion tenderness, minimal blood at the cervical os. Otherwise normal vaginal exam. Impression Primary Impression: Nausea and vomiting Disposition: 01 HOME, SELF-CARE Condition: Stable Departure-Patient Inst. Decision time for Depature: 20:23 [facility]: [facility] [place] Primary Care Physician TESS ALVAREZ APRN (Family) Primary Care Physician Patient Instructions: Nausea and Vomiting, Adult ED Add. Discharge Instructions: 1. Drink plenty of clear fluids. Pedialyte is a good choice. Return to ER for any worsening. You can use [id number] Imodium for diarrhea. Nausea medication as directed which has been sent to [facility]. All discharge instructions reviewed with patient and/or family. Voiced understanding. Scripts Promethazine HCl (Promethazine Tablet) 25 Mg Tablet 25 MG PO TID PRN for NAUSEA/VOMITING, #10 TAB Prov: JOSIE BOCANEGRA APRN 03/09/21 Ondansetron (Ondansetron Odt) 8 Mg Tab.rapdis 8 MG PO Q6H PRN for NAUSEA/VOMITING, #14 TAB Prov: JOSIE BOCANEGRA APRN 03/09/21 JOSIE BOCANEGRA APRN Mar 09, 2021 19:22
[2021-03-09 19:27] LABS: BASOPHILS % (AUTO) 0 % (0-10); EOSINOPHILS % (AUTO) 0 % (0-10); HEMATOCRIT 42 % (35-52); HEMOGLOBIN 14.3 g/dL (11.5-16.0); LYMPHOCYTES % (AUTO) 8 % (12-44); MEAN CORPUSCULAR HEMOGLOBIN 31 pg (25-34); MEAN CORPUSCULAR HGB CONC 34 g/dL (32-36); MEAN CORPUSCULAR VOLUME 91 fL (80-99); MEAN PLATELET VOLUME 11.4 fL (9.0-12.2); MONOCYTES # (AUTO) 0.4 10^3/uL (0.0-1.0); MONOCYTES % (AUTO) 3 % (0-12); NEUTROPHILS % (AUTO) 89 % (42-75); PLATELET COUNT 295 10^3/uL (130-400); WHITE BLOOD COUNT 13.5 10^3/uL (4.3-11.0)
[2021-03-09] MEDS ORDERED: HOLD METFORMIN - RECEIVED CONTRAST 20 ML VIAL IV SCH (19:30)
[2021-03-09] MEDS ORDERED: NS 100 ML (IVPB) BAG IV ONE (19:30)
[2021-03-09] MEDS ORDERED: IOHEXOL 350 MG/ML 100 ML (OMNIPAQUE 350) VIAL IV ONE (19:30)
[2021-03-09 19:58] LABS: ALANINE AMINOTRANSFERASE 33 U/L (0-55); ALBUMIN 4.6 GM/DL (3.2-4.5); ALKALINE PHOSPHATASE 61 U/L (40-136); BILIRUBIN,TOTAL 0.5 MG/DL (0.1-1.0); BUN/CREATININE RATIO 14; CALCIUM 10.1 MG/DL (8.5-10.1); CARBON DIOXIDE 17 MMOL/L (21-32); CHLORIDE 105 MMOL/L (98-107); GFR ESTIMATED 88; GLUCOSE 143 MG/DL (70-105); LIPASE 9 U/L (8-78); POTASSIUM 3.2 MMOL/L (3.6-5.0); SODIUM 141 MMOL/L (135-145); TOTAL PROTEIN 8.7 GM/DL (6.4-8.2)
[2021-03-09 20:03] LABS: BILIRUBIN,URINE NEGATIVE (NEGATIVE); CLARITY,URINE CLEAR; COLOR,URINE YELLOW; GLUCOSE, URINE (UA) NEGATIVE (NEGATIVE); KETONES,URINE 1+ (NEGATIVE); LEUKOCYTE ESTERASE ,URINE TRACE (NEGATIVE); NITRITE,URINE NEGATIVE (NEGATIVE); PROTEIN,URINE 2+ (NEGATIVE)
[2021-03-09 20:05] LABS: LYMPHOCYTES % (MANUAL) 5 %; MONOCYTES % (MANUAL) 2 %; NEUTROPHILS % (MANUAL) 93 %; RBC MORPH NORMAL
[2021-03-09 20:11] LABS: AMORPHOUS SEDIMENT,UR FEW AMOR PHOSPHATE /LPF; BACTERIA,URINE TRACE /HPF
--- NOTE | 2021-03-09 20:14 | Diagnostic Imaging Report ---
EXAMINATION: CT abdomen and pelvis with intravenous contrast. TECHNIQUE: Multiple contiguous axial images were obtained through the abdomen and pelvis after the uneventful administration of intravenous contrast. All CT scans use one or more of the following dose optimizing techniques: automated exposure control, MA and/or KvP adjustment based on patient size and exam type or iterative reconstruction. HISTORY: Lower abdominal pain. Concern for appendicitis. COMPARISON: None available. FINDINGS: The heart is unremarkable. The included lung bases are clear. The liver, spleen, pancreas, adrenal glands and kidneys have a normal appearance. There is no pathologically enlarged mesenteric or retroperitoneal adenopathy. The bowel loops are nondilated. The appendix is visualized in the right hemiabdomen and has a normal appearance. There is no free fluid or free air. No acute osseous abnormalities. Ureters and bladder are grossly normal. There is no free air, loculated collection or adenopathy in the pelvis. IMPRESSION: Normal appendix. No acute abnormalities in the abdomen or pelvis. Dictated by: Dictated on workstation # [id number]
[2021-03-09] MEDS ORDERED: PROM25TA14 PO (21:08)
[2021-03-09] MEDS ORDERED: ONDA8TAB13 PO (21:08)
[2021-03-09] MEDS ORDERED: RX-ONDANSETRON 4 MG ODT (ZOFRAN) PPK #4 PO STA (21:33)
[2021-03-09 21:41] VITALS: BP 149/106
== END 2021-03-09 21:41 | disposition home or self-care (01) ==
LOC: EDUNIT# 19:04 → ER 19:07
DX: R11.2 Nausea with vomiting, unspecified (principal)
CPT/HCPCS: 36415; 74177; 80053; 81000; 83690; 84703; 85007; 85027; 87070; 87205; 87210; 87491; 87591